=== PATIENT | female | born 1955 | race African-American/Black ===

== ENCOUNTER 2020-09-17 07:39 | Emergency (ER) | payer OTHER ==
[~2020-09-17] VITALS: Ht 162.6 cm; Wt 91.0 kg
[2020-09-17] MEDS ORDERED: FAMOTIDINE 20MG/2ML VIAL IV STA (07:56)
[2020-09-17] MEDS ORDERED: ONDANSETRON HCL 4MG/2ML INJ IV STA (07:56)
[2020-09-17 08:18] LABS: BASOPHILS % 0.7 % (0.0-2.0); HEMATOCRIT. 40.5 % (36.0-48.0); HEMOGLOBIN. 12.8 g/dL (12.0-16.0); LYMPHOCYTES % 21.9 % (20.0-50.0); MEAN CORPUSCULAR HEMOGLOBIN 23.1 pg (28.0-32.0); MEAN CORPUSCULAR VOLUME 72.7 fL (81.0-99.0); MEAN PLATELET VOLUME 10.2 fl (7.4-10.4); MONOCYTES % 8.2 % (2.0-8.0); NEUTROPHILS % 68.2 % (40.0-76.0); PLATELET 182 x1000/uL (130-400); RED BLOOD CELL COUNT 5.57 mill/uL (4.2-5.4); RED CELL DISTRIBUTION WIDTH 14.7 % (11.6-14.6)
[2020-09-17 08:24] LABS: CHLORIDE 107 mEq/L (98-107)
[2020-09-17 09:02] LABS: PROTHROMBIN TIME 10.8 sec (9.6-11.0)
[2020-09-17] MEDS ORDERED: SODIUM CHLORIDE 0.9% 500 ML IV ONE (09:15)
[2020-09-17 09:18] LABS: CLARITY URINE CLEAR (CLEAR); COLOR URINE YELLOW (YELLOW); KETONES URINE NEGATIVE (NEGATIVE); LEUKOCYTE ESTERASE URINE NEGATIVE (NEGATIVE); NITRITE URINE NEGATIVE (NEGATIVE); OCCULT BLOOD URINE NEGATIVE (NEGATIVE); PH URINE 7.5 (4.5-8.0); PROTEIN URINE 2+ (NEGATIVE)
[2020-09-17 13:40] VITALS: BP 157/78
== END 2020-09-17 13:49 | disposition short-term general hospital (02) ==
LOC: ER 07:39
DX: R10.13 Epigastric pain (principal); G93.40 Encephalopathy, unspecified; I10 Essential (primary) hypertension; E11.9 Type 2 diabetes mellitus without complications
CPT/HCPCS: 36415; 70450; 71045; 74176; 80053; 81003; 82962; 83690; 84484; 85025; 85610; 93005; 96361; 96374; 96375; 99285; J2405; J3490; J7040